=== PATIENT | male | born 1985 | race Hispanic/Latino ===

== ENCOUNTER → 2023-04-14 | Outpatient (CLI) | payer BC ==
[2023-04-14 12:38] LABS: CREATININE 1.1 mg/dL (0.5-1.5); MAGNESIUM 1.9 mg/dL (1.80-2.40); PHOSPHORUS 3.4 mg/dL (2.5-4.9); T4 (THYROXINE) 7.2 ug/dL (4.7-13.3); THYROID STIMULATING HORMONE 1.74 uIU/mL (0.36-3.74)
== END | disposition home or self-care (01) ==
LOC: LAB 10:18
PROVIDERS: ATTEND Internal Medicine Cardiovascular Disease
DX: R00.2 Palpitations (principal); R01.1 Cardiac murmur, unspecified
CPT/HCPCS: 36415; 80048; 83735; 84100; 84436; 84443; 84479

== ENCOUNTER 2023-05-23 12:56 | Emergency (ER) | payer BC ==
[~2023-05-23] VITALS: Ht 170.2 cm; Wt 86.2 kg
[2023-05-23 13:06] VITALS: O2SAT 100
[2023-05-23] MEDS ORDERED: KETOROLAC 30MG VIAL (30MG/ML) IVP ONE (13:30)
[2023-05-23] MEDS ORDERED: KETOROLAC 15MG/ML VIAL (15MG/ML) IV ONE (13:30)
[2023-05-23] MEDS ORDERED: GABAPENTIN 300 MG CAPSULE PO SCH (13:30)
[2023-05-23] MEDS ORDERED: TIZANIDINE HCL 2 MG TABLET PO SCH (13:30)
[2023-05-23] MEDS ORDERED: ONDANSETRON 4MG INJ IVP ONE (13:30)
[2023-05-23] MEDS ORDERED: PREDNISONE 20 MG TABLET PO ONE (13:30)
[2023-05-23] MEDS ORDERED: DIAZEPAM 5 MG TABLET PO ONE (13:30)
[2023-05-23] MEDS ORDERED: MORPHINE 4 MG SYG IVP ONE (15:00)
[2023-05-23] MEDS ORDERED: PRED20TA3 PO (15:48)
[2023-05-23] MEDS ORDERED: METH-811 PO (15:48)
[2023-05-23] MEDS ORDERED: IBUP-2070 PO (15:48)
[2023-05-23 16:15] VITALS: BP 111/62; PULSE 65; RESP 20
== END 2023-05-23 16:16 | disposition home or self-care (01) ==
LOC: EDH 12:56
DX: S39.012A Strain of muscle, fascia and tendon of lower back, initial encounter (principal); X58.XXXA Exposure to other specified factors, initial encounter; Y93.89 Activity, other specified; Y92.89 Other specified places as the place of occurrence of the external cause; Y99.8 Other external cause status
CPT/HCPCS: 99284; 96374; 72131; 96375; J2405; J2270; J1885